=== PATIENT | male | born 1980 | race Caucasian/White ===

== ENCOUNTER → 2018-12-08 10:23 | Outpatient (CLI) | payer OTHER, SELFPAY ==
--- NOTE | 2018-12-08 | DI.US.S_ITS ---
PROCEDURE: US SCROTUM INDICATIONS: MALE INFERTILITY, UNSPECIFIED TECHNIQUE: Real-time scanning was performed of the scrotum and testicles, with image documentation. Color and pulse Doppler interrogation was performed of both testicles. COMPARISON: None. FINDINGS: Right: Testicle is normal in size at 3.3 x 2.4 x 2.0 cm, and homogenous in echotexture. No focal mass lesions. There is a single punctate coarse calcification likely related to prior trauma/infection. Epididymis is normal in overall size and morphology. No varicoceles. Small right hydrocele. Overlying scrotal skin is normal in thickness. Left: Testicle is normal in size at 3.4 x 2.4 x 1.7 cm, and homogeneous in echotexture. Epididymis is normal in overall size and morphology. No varicoceles. Small left hydrocele. Overlying scrotal skin is normal in thickness. Doppler: Color and pulse Doppler demonstrate normal and symmetric arterial flow in both testicles. IMPRESSION: Small bilateral hydroceles, likely physiologic. Otherwise, unremarkable sonographic evaluation of the testicles. Dictated by: David Ross M.D. on 12/08/2018 at 13:36 Approved by: David Ross M.D. on 12/08/2018 at 13:39
== END ==
PROVIDERS: Visit Provider Specialist
DX: N46.9 Male infertility, unspecified (principal); N43.3 Hydrocele, unspecified
CPT/HCPCS: 76870